=== PATIENT | male | born 1945 | race Caucasian/White ===

== ENCOUNTER → 2017-05-14 | Day surgery (SDC) | payer MEDICARE ==
[~2017-05-14] VITALS: Ht 177.8 cm; Wt 79.3 kg
[~2017-05-14] MED LIST: ACETAMINOPHEN/HYDROcodone 325 MG/5 MG TAB PO PRN; ASPI-183 PO; ASPI1TAB57 PO; BUPIVACAINE/EPINEPHRINE 0.5% PF 30 ML VIAL ONE; CHLORHEXIDINE GLUCONATE 2 % 1 PACK (2 CLOTHS) TOPICAL PRN; DEXAMETHASONE SOD PHOS 4 MG/ML VIAL IV ONE; DO NOT ADM ANY ANTICOAGULANT DRUGS PRN; FAMOTIDINE 20 MG/2 ML VIAL IV PUSH ONE; FAMOTIDINE 20 MG/2 ML VIAL ONE; HEPARIN SODIUM - IV 10,000 UNITS/10 ML VIAL ONE; HEPARIN SODIUM - SQ 10,000 UNITS/ML VIAL ONE; LACTATED RINGER'S 1000 ML IV PRN; LACTATED RINGER'S 500 ML INJ IV SCH; LIDOCAINE HCL 1% PF 5 ML SYRINGE OTHER ONE; LIPI10TA PO; MAGNESIUM SULFATE 1 GM/100 ML IV PRN; METOPROLOL TARTRATE 25 MG TAB PO PRN; MIDAZOLAM HCL 2 MG/2 ML VIAL IV ONE; MULT-65 PO; NITROGLYCERIN-D5W 50 MG/250 ML 250 ML IV ONE; ONDANSETRON HCL 4 MG/2 ML VIAL IV PUSH PRN; PHENYLEPH/NS 1000 MCG/10 ML SYR IV ONE; POTASSIUM CHLOR 20 MEQ 100 ML x 2 BAGS IV PRN; POTASSIUM CHLOR 20 MEQ/100 ML x 1 BAG IV PRN; POTASSIUM PHOSPHATE 21 MMOL/NS 250 ML IV PRN; POVIDONE IODINE 5% (ANTISEPSIS KIT) 4 APPLICATIONS EACH NARE PRN; PROPOFOL 200 MG/20 ML AMP IV ONE; PROTAMINE SULFATE 50 MG/5 ML VIAL ONE; RESP: ALBUTEROL 2.5 MG/IPRATROPIUM 0.5 MG NEB (SCH) NEB ONE; SODIUM CHLORID 0.9% 500 ML IV PRN; SODIUM CHLORIDE 0.9% FLUSH 10 ML FLUSH IV FLUSH PRN; SODIUM CHLORIDE 0.9% FLUSH 10 ML FLUSH IV FLUSH SCH; TELM40 PO; UMEC1AER INH; VITA2000 PO; VITACAP7 PO; ceFAZolin 1,000 MG/NS 100 ML IV SCH; ePHEDrine/NS 25 MG/5 ML SYR IV ONE
[2017-05-14 07:09] LABS: AUTOMATED NEUTROPHIL # 5.7 TH/MM3 (1.8-7.7); BASOPHIL % 0.6 % (0.0-2.0); EOSINOPHIL # 0.2 TH/MM3 (0-0.4); EOSINOPHIL % 2.4 % (0.0-4.0); HEMATOCRIT 42.7 % (39.0-51.0); HEMO FLAGS DIFF FINAL; LYMPH % 18.4 % (9.0-44.0); LYMPHOCYTE # 1.5 TH/MM3 (1.0-4.8); MEAN CELL VOLUME 93.4 FL (80.0-100.0); MEAN CORPUSCULAR HEMOGLOBIN 32.3 PG (27.0-34.0); MEAN CORPUSCULAR HGB CONC 34.6 % (32.0-36.0); MONO % 8.4 % (0.0-8.0); NEUT % 70.2 % (16.0-70.0); PLATELET COUNT 204 TH/MM3 (150-450); RED BLOOD COUNT 4.57 MIL/MM3 (4.50-5.90); RED CELL DISTRIBUTION WIDTH 13.3 % (11.6-17.2); WHITE BLOOD COUNT 8.1 TH/MM3 (4.0-11.0)
[2017-05-14 07:23] LABS: APTT (PATIENT) 25.7 SEC (24.3-30.1); PROTHROMBIN TIME - PATIENT 10.5 SEC (9.8-11.6)
[2017-05-14 07:35] LABS: BICARBONATE 27.1 MEQ/L (21.0-32.0); POTASSIUM 4.4 MEQ/L (3.5-5.1)
--- NOTE | 2017-05-14 14:04 | EKG ---
Date Performed: 05/14/2017 Time Performed: 06:57:03 PTAGE: 71 years EKG: Sinus rhythm WITH SINUS ARRHYTHMIA NORMAL ECG PREVIOUS TRACING : 06/04/2012 12.13 Compared to prior tracing no significant change DOCTOR: Vitaly Bryant Interpretating Date/Time 05/14/2017 14:01:21
[2017-05-14 18:09] VITALS: BP 119/70; PULSE 70; RESP 18; TEMP 98.5; O2SAT 95
--- NOTE | 2017-05-17 20:41 | MP ---
cc: ASTER BELL MD, JAMES DATE OF SURGERY 05/14/17 PREOPERATIVE DIAGNOSIS Disabling left lower extremity ischemia. POSTOPERATIVE DIAGNOSIS Disabling left lower extremity ischemia. OPERATIVE PROCEDURE Left popliteal orbital atherectomy with percutaneous balloon angioplasty. SURGEON Joceline Amaral MD [employer] CANDIDO Savage ANESTHESIA Local MAC DESCRIPTION OR PROCEDURE With the patient in the supine position and under IV sedation, the lower abdomen, both groins and thighs were prepped with Betadine and draped in a sterile fashion. One gram of Ancef was administered intravenously and, following a protocol time-out, skin and subcutaneous tissue surrounding the proposed left femoral access site was preemptively infiltrated with 0.5% Marcaine with epinephrine. Utilizing ultrasound guidance, an 18 gauge needle was inserted into the left mid common femoral lumen, antegrade approach. A J-wire was advanced under fluoroscopic guidance into the proximal superficial femoral artery. The arterial puncture needle was exchanged for a 5-Malay hemostatic sheath which was delivered over the J-wire and parked within the proximal SFA. Diluted contrast injected through the sheath side-arm in conjunction with digital C-arm fluoroscopic imaging revealed unrestricted flow through the superficial and profunda femoral arteries. The popliteal was patent above the knee but flush occluded 1-2 cm proximal to the knee joint level. perigeniculate collaterals reconstituted the tibioperoneal trunk. The anterior tibial was not visualize. The peroneal and posterior tibial arteries provided what appeared to be dominant runoff to the left foot. The posterior tibial artery exhibited a focal, near-complete occlusion about 5 cm distal to its origin. The patient was systemically heparinized with 5000 units. ACT measured above 250 and monitored throughout the procedure to maintain above 250. An Advantage guidewire and quick cross catheter combination was navigated across the popliteal tibial occlusion. The Advantage wire was exchanged for a Viper wire which was parked within the distal posterior tibial. Orbital atherectomy of the popliteal occlusion with a 1.5 classic CSI crown was completed at 60, 90 and 140,000 rpm followed by balloon angioplasty with a 4 x 120 mg balloon followed by treatment with a 5 x 120 mm drug coated balloon. The proximal popliteal stenosis was balloon angioplastied with a 3 x 20 mm balloon as well. Completion angiogram revealed wide patency of the previously occluded popliteal and unrestricted flow into what now appeared anterior tibial as well as continued flow much improved within the peroneal and posterior tibial arteries. Heparin was not reversed. At the conclusion of the procedure, the left posterior tibial pulse was easily palpable with robust triphasic flow. The patient returned to PAC in stable condition having tolerated procedure well. MD RC Nunez/ /3:12 PM /8:33 PM
== END | disposition home or self-care (01) ==
LOC: HSDC 06:02
PROVIDERS: ATTEND Surgery Vascular Surgery
DX: I70.212 Atherosclerosis of native arteries of extremities with intermittent claudication, left leg (principal); I10 Essential (primary) hypertension; J44.9 Chronic obstructive pulmonary disease, unspecified
CPT/HCPCS: 01270; 37225; 75710; 80048; 85025; 85610; 85730; 86850; 86900; 86901; 93005; 94664; C1725; J1100; J1644; J2250; J2370; J7120; J2720